=== PATIENT | female | born 1955 | race Caucasian/White ===

== ENCOUNTER 2021-10-16 11:03 | Outpatient (CLI) | payer BC, MEDICARE ==
[~2021-10-16 11:03] MED LIST: Iopamidol 300 61% 100 ML VIAL FS ONE
== END 2021-10-16 11:04 | disposition home or self-care (01) ==
LOC: CSHCT 11:03
PROVIDERS: ATTEND Family Medicine
DX: R10.13 Epigastric pain (principal); R74.8 Abnormal levels of other serum enzymes
CPT/HCPCS: 74170

== ENCOUNTER 2025-04-21 12:42 | Outpatient (CLI) | payer BC, MEDICARE | END 2025-04-21 12:43 | disposition home or self-care (01) | LOC: CSHMAMMO 12:42 | PROVIDERS: ATTEND Family Medicine | DX: Z12.31 Encounter for screening mammogram for malignant neoplasm of breast (principal) | CPT/HCPCS: 77063; 77067 ==